=== PATIENT | male | born 1980 | race Caucasian/White ===

== ENCOUNTER 2021-01-05 11:45 | Emergency (ER) | payer SELFPAY ==
[~2021-01-05] VITALS: Ht 182.9 cm; Wt 121.8 kg
[2021-01-05 11:45] VITALS: BP 134/88
[2021-01-05] MEDS ORDERED: PSEUDOEPHEDRINE 30 MG TABLET. PO ONE (12:45)
[2021-01-05] MEDS ORDERED: BENZONATATE 100 MG CAPSULE. PO ONE (12:45)
--- NOTE | 2021-01-05 12:52 | PHYS DOC ---
Past History Past Medical History: Anxiety (KRAIG ALEGRIA APRN) Past Surgical History: No Surgical History (KRAIG ALEGRIA APRN) Alcohol Use: Occasionally (KRAIG ALEGRIA APRN) Adult General Chief Complaint Chief Complaint: ALLERGIES HPI HPI Patient is a 40-year-old male presents emergency department reporting this past Monday noticing a stuffy nose that progressed to a cough with nasal and chest congestion. Patient states he now has a sore throat and has been coughing up a large amount of yellow-greenish colored phlegm. Patient denies any recent fever or chills. Patient states last night while he was lying in bed he experienced a chest pain to the left side of his chest that went through to his back lasted approximately 10 to 15 minutes. Patient states he broke out in a sweat and had shortness of breath. Patient states it has since resolved and currently has no chest pain. Patient reported his chest pain a 7 out of 10 pain. Patient denies any nausea, vomiting, diarrhea, or abdominal pains. Patient denies any constipation. Patient denies seeing any blood in his urine or stool. Patient denies any urinary tract infection type signs and symptoms. Patient states he is a cigarette smoker, denies illicit drug use, states he drinks occasionally on the weekends. Patient denies allergies to medications. Patient states he tried [id number] throat lozenges and of Benadryl last night which seemed to help some. Patient denies a family history of heart disease. Patient states his primary care physician is Dr. Roberts in [facility]. Patient denies any other physical complaints or physical concerns. (KRAIG ALEGRIA APRN) Review of Systems Review of Systems 14 body systems of review of systems have been reviewed. See HPI for pertinent positives and negative responses, otherwise all other systems are negative, nonpertinent or noncontributory. (KRAIG ALEGRIA APRN) Allergies Allergies Allergies Coded Allergies Type Severity Reaction Last Updated Verified No Known Drug Allergies 01/05/21 No (KRAIG ALEGRIA APRN) Physical Exam Physical Exam Constitutional: Well developed, well nourished, no acute distress, non-toxic appearance. HENT: Normocephalic, atraumatic, bilateral external ears normal, oropharynx moist, no oral exudates, external nose exam normal. Bilateral nasal turbinates erythematous with scant clear drainage, oropharynx moist, erythematous, bilateral tonsils erythematous, no cobblestoning appreciated, no laryngeal swelling, no uvular swelling, scant postnasal drip clear drainage. Patient speaking in normal voice tones. Eyes: PERRLA, EOMI, conjunctiva normal, no discharge. Neck: Normal range of motion, no tenderness, supple, no stridor. No meningismus signs, no nuchal rigidity. Cardiovascular:Heart rate regular rhythm, no murmur, heart sounds S1-S2 to auscultation. Lungs & Thorax: Bilateral breath sounds clear to auscultation no adventitious lung sounds appreciated. Abdomen: Bowel sounds normal, soft, no tenderness, no masses, no pulsatile masses. Skin: Warm, dry, no erythema, no rash. Back: No tenderness, no CVA tenderness. Extremities: No tenderness, no cyanosis, no clubbing, ROM intact, no edema. Neurologic: Alert and oriented X 3, normal motor function, normal sensory function, no focal deficits noted. Psychologic: Affect normal, judgement normal, mood normal. (KRAIG ALEGRIA APRN) Current Patient Data Vital Signs Vital Signs Date Time Temp Pulse Resp B/P (MAP) Pulse Ox O2 Delivery O2 Flow Rate FiO2 01/05/21 11:45 97.9 70 16 134/88 (103) 99 Room Air (KRAIG ALEGRIA APRN) EKG EKG EKG performed at 1250 by house respiratory therapy staff shows a normal sinus rhythm without ectopy, SC interval 0.158, QTc interval 0.416, no acute STEMI, no ACS, no acute ischemia appreciated, EKG interpreted by ED attending physician Dr. Hollis. (KRAIG ALEGRIA APRN) Radiology/Procedures Radiology/Procedures PATIENT: CHET YORK ACCOUNT: [id number] : 1980 LOCATION: ER AGE: 40 SEX: M EXAM STATUS: REG ER ORD. PHYSICIAN: KRAIG ALEGRIA APRN REASON: CHEST PAIN, COUGH, CONGESTION PROCEDURE: CHEST PA & LATERAL Two-view chest dated 01/05/2021. No comparison available. Clinical data indication: Chest pain and cough. FINDINGS: PA and lateral views obtained. Heart and mediastinal contours are within normal limits. Lungs are clear. No consolidation or pleural effusion. No pneumothorax. IMPRESSION: No acute radiographic abnormality. Electronically signed by: Kraig Vargas MD (01/05/2021 1:01 PM) [facility] DICTATED AND SIGNED BY: KRAIG VARGAS MD DATE: 01/05/21 1301 CC: KRAIG ALEGRIA APRN; MUKUL VEGA MD ~MTH0 0 (KRAIG ALEGRIA APRN) Heart Score C/O Chest Pain: Yes HEART Score for Chest Pain: HEART Score for Chest Pain Response (Comments) Value History Slighlty/Non-Suspicious 0 ECG Normal 0 Age < 45 0 Risk Factors 1 or 2 Risk Factors 1 Troponin < Normal Limit 0 Total 1 Risk Factors: Risk Factors: DM, Current or recent (<one month) smoker, HTN, HLP, family history of CAD, obesity. Risk Scores: Risk Factors: DM, Current or recent (<one month) smoker, HTN, HLP, family history of CAD, obesity. (KRAIG ALEGRIA APRN) Course & Med Decision Making Course & Med Decision Making Pertinent Labs and Imaging studies reviewed. (See chart for details) 40-year-old male, vital signs reviewed, presents emergency department with URI type signs and symptoms. Physical examination consistent with URI, however with patient complaint of chest pain with diaphoretic episode and is a cigarette smoker will order CBC, BMP, troponin, EKG, chest x-ray, rapid strep. We will order Sudafed, Tessalon Perle for presenting symptoms. Patient is EKG, troponin I, serum labs negative for acute process. Discussed findings with patient, upon reevaluation patient states she started to feel better since medications were given in the ED today, discussed will diagnosed with URI, will prescribe Flonase nasal spray and Zyrtec, patient was amenable to this plan, patient is asking for a work excuse for today. 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 Patient gave verbal understanding of discharge home instructions, medication use, follow-up with primary care for ongoing symptoms, return to ER precautions or concerns, patient was discharged home without incident. (KRAIG ALEGRIA APRN) Course & Med Decision Making I oversaw on the above date of service of this patient and discussed the care with the CASTING AND PASTING SUPERVISOR. I agree with the findings, plan of care, and disposition as documented. Electronically signed, Cullen Hollis DO (CULLEN HOLLIS DO) Arnoldo Disclaimer Arnoldo Disclaimer This electronic medical record was generated, in whole or in part, using a voice recognition dictation system. (KRAIG ALEGRIA APRN) Departure Departure: Impression: Primary Impression: URI (upper respiratory infection) Additional Impression: Cigarette smoker Disposition: HOME / SELF CARE / HOMELESS Condition: GOOD Referrals: MUKUL VEGA MD (PCP) Patient Instructions: Upper Respiratory Infection, Adult Additional Instructions: You are seen today in the emergency department for upper respiratory type signs and symptoms, however with your history of cigarette smoking and complaint of chest pain, an EKG and chest x-ray were ordered, lab work was ordered, there were no signs of infectious process, no signs of heart disease, your EKG was within normal limits, I do recommend quitting smoking as smoking cigarettes will prolong your symptoms, I also recommend wearing a dust mask or dust respirator while at work 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 Please follow-up with your primary care physician this week for ongoing symptoms, I am prescribing you Flonase nasal spray and Zyrtec, please take as directed. Please return to the emergency department for worsening symptoms or other concerns. EMERGENCY DEPARTMENT GENERAL DISCHARGE INSTRUCTIONS Thank you for coming to [facility] (ED) today and trusting us with you care. We trust that you had a positivie experience in our Emergency Department. If you wish to speak to the department management, you may call the director at . YOUR FOLLOW UP INSTRUCTIONS ARE FOLLOWS: 1. Do you have a private Doctor? If you do not have a private doctor, please ask for a resource list of physicians or clinics that may be able to assist you with follow up care. 2. The Emergency Physician has interpreted your x-rays. The X-Ray specialist will also review them. If there is a change in the findings, you will be notified in 48 hours when at all possible. 3. A lab test or culture has been done, your results will be reviewed and you will be notified if you need a change in treatment. ADDITIONAL INSTRUCTIONS AND INFORMATION: 1. Your care today has been supervised by a physician who is specially trained in emergency care. Many problems require more than one evaluation for a complete diagnosis and treatment. We recommend that you schedule your follow up appointment as recommended to ensure complete treatment of you illness or injury. If you are unable to obtain follow up care and continue to have a problem, or if your condition worsens, we recommend that you return to the ED. 2. We are not able to safely determine your condition over the phone nor are we able to give sound medical advice over the phone. For these safety reasons, if you call for medical advice we will ask you to come to the ED for further evaluation. 3. If you have any questions regarding these discharge instructions please call the ED at [phone]. SAFETY INFORMATION: In the interest of safety, wellness, and injury prevention; we encourage you to wear your sealbelt, if you smoke; quite smoking, and we encourage family to use a protective helmet for bicycling and other sporting events that present an increased risk for head injury. IF YOUR SYMPTOMS WORSEN OR NEW SYMPTOMS DEVELOP, OR YOU HAVE CONCERNS ABOUT YOUR CONDITION; OR IF YOUR CONDITION WORSENS WHILE YOU ARE WAITING FOR YOUR FOLLOW UP APPOINTMENT; EITHER CONTACT YOUR PRIMARY CARE DOCTOR, THE PHYSICIAN WHOSE NAME AND NUMBER YOU WERE GIVEN, OR RETURN TO THE ED IMMEDIATELY. Scripts Cetirizine Hcl (ZYRTEC) 10 Mg Tablet 1 TAB PO DAILY for ALLERGIES, #30 TAB 0 Refills Prov: KRAIG ALEGRIA APRN 01/05/21 Fluticasone Propionate (Flonase Allergy Relief) 9.9 Ml Sharon.susp 2 SPRAYS NS DAILY for ALLERGIES, #1 BOTTLE 0 Refills Prov: KRAIG ALEGRIA APRN 01/05/21 Problem Qualifiers Primary Impression: URI (upper respiratory infection) URI type: unspecified URI Qualified Codes: J06.9 - Acute upper respiratory infection, unspecified KRAIG ALEGRIA APRN Jan 05, 2021 12:52 CULLEN HOLLIS DO Jan 06, 2021 06:53
--- NOTE | 2021-01-05 13:04 | EKG ---
[address] [address] Test Date: 2021-01-05 Test Time: 12:50:48 Pat Name: CHET YORK Department: Room: Gender: M [employer] Specialist: AMANDA : 1980 Requested By: NASRIN ALEGRIA Order Number: [id number] Reading MD: Indra Ambriz Measurements Intervals [place] Rate: 60 P: 38 NE: 158 QRS: 19 QRSD: 102 T: 48 QT: 412 QTc: 416 Interpretive Statements SINUS RHYTHM NORMAL ECG RI6.02 No previous ECG available for comparison Electronically Signed On 01-05-2021 14:53:21 CDT by Indra Ambriz
--- NOTE | 2021-01-05 13:04 | RAD ---
Two-view chest dated 01/05/2021. No comparison available. Clinical data indication: Chest pain and cough. FINDINGS: PA and lateral views obtained. Heart and mediastinal contours are within normal limits. Lungs are wally ar. No consolidation or pleural effusion. No pneumothorax. IMPRESSION: No acute radiographic abnormality. Electronically signed by: Kraig Costa MD (01/05/2021 1:01 PM) [facility]
[2021-01-05 13:26] LABS: BASO % 1 % (0-3); EOS # 0.3 x10^3/uL (0.0-0.7); EOS % 4 % (0-3); HEMATOCRIT 47.2 % (39.0-53.0); HEMOGLOBIN 16.2 g/dL (13.0-17.5); LYMPH # 2.8 x10^3/uL (1.0-4.8); LYMPH % 31 % (24-48); MEAN CORPUSCULAR HEMOGLOBIN 30 pg (25-35); MEAN CORPUSCULAR HGB CONC 34 g/dL (31-37); MEAN CORPUSCULAR VOLUME 87 fL (79-100); MONO # 1.2 x10^3/uL (0.0-1.1); MONO % 14 % (0-9); NEUT # 4.5 x10^3uL (1.8-7.7); NEUT % 50 % (31-73); PLATELET COUNT 282 x10^3/uL (140-400); RED CELL DISTRIBUTION WIDTH 13.8 % (11.5-14.5); WHITE BLOOD COUNT 8.9 x10^3/uL (4.0-11.0)
[2021-01-05 13:38] LABS: CALCIUM 9.5 mg/dL (8.5-10.1); CREATININE 0.9 mg/dL (0.7-1.3); POTASSIUM 4.3 mmol/L (3.5-5.1)
[2021-01-05] MEDS ORDERED: FLUT9.9S NS (15:08)
[2021-01-05] MEDS ORDERED: CETI10TA74 PO (15:08)
== END 2021-01-05 15:15 | disposition home or self-care (01) ==
LOC: ER 11:45
DX: J06.9 Acute upper respiratory infection, unspecified (principal); F17.210 Nicotine dependence, cigarettes, uncomplicated; F41.9 Anxiety disorder, unspecified; R07.89 Other chest pain
CPT/HCPCS: 36415; 71046; 80048; 84484; 85025; 87070; 87880; 93005; 99285